=== PATIENT | female | born 1985 ===

== ENCOUNTER 2019-10-01 14:15 | Emergency (ER) | payer OTHER ==
--- NOTE | 2019-10-01 15:17 | ED ---
Throat Pain/Nasal Congestion - HPI Summary HPI Summary: This pt is a 34 y/o [facility] with swallowing after eating today. Pt reports around 2 hours ago at about 1300 she was eating rice, beans, ham, and cooked vegetables when she felt "something" stuck in her throat. She denies vomiting, drooling, difficulty swallowing. Currently pt is drinking gingerale without any difficulties. Pt reports this has not happened in the past. No FHx of GI. - History of Current Complaint Chief Complaint: EDForeignBodyEsophag Time Seen by Provider: 10/01/19 15:01 Hx Obtained From: Patient Onset/Duration: Lasting Hours, Still Present Severity: Moderate Associated Signs And Symptoms: Positive: Negative Cough: None - Allergies/Home Medications Allergies/Adverse Reactions: Allergies Allergy/AdvReac Type Severity Reaction Status Date / Time No Known Allergies Allergy Verified 10/01/19 14:24 Home Medications: Home Medications buPROPion TAB* [Wellbutrin TAB*] 75 mg PO BID 10/01/19 [History Confirmed ] PMH/Surg Hx/FS Hx/Imm Hx Endocrine/Hematology History: Denies: Hx Diabetes, Hx Thyroid Disease Cardiovascular History: Denies: Hx Hypertension Respiratory History: Denies: Hx Asthma, Hx Chronic Obstructive Pulmonary Disease (COPD) GI History: Denies: Hx Ulcer Sensory History: Reports: Hx Contacts or Glasses Opthamlomology History: Reports: Hx Contacts or Glasses Psychiatric History: Reports: Hx Bipolar Disorder Denies: Hx of Violent Episodes Against Others - Surgical History Surgical History: Yes Surgery Procedure, Year, and Place: Infectious Disease History: No Infectious Disease History: Denies: Hx Hepatitis, Hx Human Immunodeficiency Virus (HIV), Traveled Outside the [place] in Last 30 Days - Family History Family History: No GI hx in family - Social History Alcohol Use: None Substance Use Type: Reports: None Smoking Status (MU): Never Smoked Tobacco Review of Systems Negative: Fever ENT: Other - POSITIVE: feeling something stuck in throat Negative: Other - NEGATIVE: difficulty swallowing, drooling Negative: Vomiting All Other Systems Reviewed And Are Negative: Yes Physical Exam - Summary Physical Exam Summary: Constitutional: Well-developed, Well-nourished, Alert. (-) Distressed Skin: Warm, Dry HENT: Normocephalic; Atraumatic Eyes: Conjunctiva normal Neck: Musculoskeletal ROM normal neck. (-) JVD, (-) Stridor Cardio: Rhythm regular, rate normal, Heart sounds normal; Intact distal pulses; Radial pulses are 2+ and symmetric. (-) Murmur Pulmonary/Chest wall: Effort normal. (-) Respiratory distress, (-) Wheezes, (-) Rales Abd: Soft, (-) tenderness, (-) Distension, (-) Guarding, (-) Rebound Musculoskeletal: (-) Edema Lymph: (-) Cervical adenopathy Neuro: Alert, Oriented x3 Psych: Mood and affect Normal Triage Information Reviewed: Yes Vital Signs On Initial Exam: Initial Vitals Temp Pulse Resp BP Pulse Ox 98.5 F 86 18 100/61 100 10/01/19 14:21 10/01/19 14:21 10/01/19 14:21 10/01/19 14:21 10/01/19 14:21 Vital Signs Reviewed: Yes Procedures - Sedation Patient Received Moderate/Deep Sedation with Procedure: No Diagnostics - Vital Signs Vital Signs Temp Pulse Resp BP Pulse Ox 10/01/19 14:21 98.5 F 86 18 100/61 100 - Laboratory Lab Statement: Any lab studies that have been ordered have been reviewed, and results considered in the medical decision making process. EENT Course/Dx - Course Course Of Treatment: 34 y/o F w concern for esophageal FB. - tolerating PO. Suspect pain 2/2 irritation from passed FB. - given viscous lidocaine, return for worsening symptoms. - Diagnoses Provider Diagnoses: Esophageal foreign body, Dysphagia Discharge ED - Sign-Out/Discharge Documenting (check all that apply): Patient Departure - Discharge home - Discharge Plan Condition: Stable Disposition: HOME Patient Education Materials: Esophageal Foreign Body (ED) Referrals: Damari Burgess MD [Primary Care Provider] - Additional Instructions: You were seen in the emergency department for concern over esophageal food impaction. We think you likely have irritation from food being stuck in your esophagus. If this happens again, and you're able to drink, you can drink carbonated beverages such as lottie toro and hop on your heels. If it does not improve her symptoms, please return to the ED. Please follow up with your primary care doctor in next 2-3 days and return to emergency department for worsening or concerning symptoms. It was a pleasure taking care of you today. - Billing Disposition and Condition Condition: STABLE Disposition: Home - Attestation Statements Document Initiated by [employer]adib[employer]: Yes Documenting Scribe: Ashly Dorsey Provider For Whom Manuel is Documenting (Include Credential): Ruchi Freeman MD Scribe Attestation: Ashly David, scribed for Ruchi Freeman MD on 10/01/19 at 1536. Scribe Documentation Reviewed: Yes Provider Attestation: The documentation as recorded by the Ashly head accurately reflects the service I personally performed and the decisions made by , Ruchi Freeman MD Status of Scribe Document: Viewed
[2019-10-01] MEDS: Lidocaine 2% VISCOUS* 15 ML UDC PO ONE (15:24)
[2019-10-01 15:50] VITALS: BP 123/74
== END 2019-10-01 15:46 | disposition home or self-care (01) ==
LOC: ED 14:15
DX: T18.128A Food in esophagus causing other injury, initial encounter (principal); R13.10 Dysphagia, unspecified; X58.XXXA Exposure to other specified factors, initial encounter; Y92.9 Unspecified place or not applicable; F31.9 Bipolar disorder, unspecified; Z79.899 Other long term (current) drug therapy
CPT/HCPCS: 99282